=== PATIENT | male | born 1965 | race Caucasian/White ===

== ENCOUNTER 2018-10-24 08:22 | Emergency (ER) | payer BC ==
[2018-10-24 08:52] VITALS: BP 134/82
--- NOTE | 2018-10-24 09:00 | ED ---
Throat Pain/Nasal Congestion - HPI Summary HPI Summary: 53 yr old male with the complaint of irritation, itching, yellow crusty drainage from right eye. Onset of symptoms was first yesterday. He has no change in vision. Does not wear contact lenses. No other complaints. - History of Current Complaint Chief Complaint: UCEye Time Seen by Provider: 10/24/18 08:53 - Allergies/Home Medications Home Medications: Home Medications Tetrahydrozoline HCl [Visine] 2 drop BOTH EYES ONCE 10/24/18 [History Confirmed 10/24/18] PMH/Surg Hx/FS Hx/Imm Hx Infectious Disease History: No Infectious Disease History: Reports: Traveled Outside the [place] in Last 30 Days - [place] - Family History Known Family History: Positive: Hypertension - Social History Alcohol Use: Occasionally Substance Use Type: Reports: None Smoking Status (MU): Former Smoker Length of Time of Smoking/Using Tobacco: 1 PPD x 25 Years Review of Systems Constitutional: Negative Positive: Drainage, Erythema All Other Systems Reviewed And Are Negative: Yes Physical Exam Triage Information Reviewed: Yes Vital Signs On Initial Exam: Initial Vitals Temp Pulse Resp BP Pulse Ox 97.9 F 70 16 134/82 100 10/24/18 08:46 10/24/18 08:46 10/24/18 08:46 10/24/18 08:46 10/24/18 08:46 Vital Signs Reviewed: Yes Appearance: Positive: Well-Appearing, No Pain Distress Skin: Positive: Warm, Skin Color Reflects Adequate Perfusion Head/Face: Positive: Normal Head/Face Inspection Eyes: Positive: EOMI, IFEANYI, Conjunctiva Inflammed - bilateral with yellow drainage., Other: - eyelids WNL no swelling or erythema. ENT: Positive: Pharynx normal Neck: Positive: Nontender Respiratory/Lung Sounds: Positive: Clear to Auscultation, Breath Sounds Present Cardiovascular: Positive: RRR. Negative: Murmur Abdomen Description: Positive: Nontender Musculoskeletal: Positive: Strength/ROM Intact Neurological: Positive: Sensory/Motor Intact, Alert, Oriented to Person Place, Time, CN Intact II-III Psychiatric: Positive: Normal Diagnostics - Vital Signs Vital Signs Temp Pulse Resp BP Pulse Ox 10/24/18 08:46 97.9 F 70 16 134/82 100 - Laboratory Lab Statement: Any lab studies that have been ordered have been reviewed, and results considered in the medical decision making process. EENT Course/Dx - Course Course Of Treatment: 53 yr old male with conjunctivitis. Plan DC home on sulfa eye drops. - Diagnoses Provider Diagnoses: Conjunctivitis, Elevated blood pressure reading Discharge - Sign-Out/Discharge Documenting (check all that apply): Patient Departure All imaging exams completed and their final reports reviewed: No Studies - Discharge Plan Condition: Good Disposition: HOME Prescriptions: Sulfacetamide 10 % OPTH.SHREYAS* [Sulamyd 10% Opth*] 1 drop BOTH EYES Q4H #1 btl Patient Education Materials: Hypertension (ED), Conjunctivitis (ED) Referrals: Zaki Monaco DO [Primary Care Provider] - 2 Days - Billing Disposition and Condition Condition: GOOD Disposition: Home
== END 2018-10-24 09:08 | disposition home or self-care (01) ==
LOC: UCCORT 08:22
DX: H10.9 Unspecified conjunctivitis (principal); R03.0 Elevated blood-pressure reading, without diagnosis of hypertension; Z87.891 Personal history of nicotine dependence
CPT/HCPCS: 99212; G0463